=== PATIENT | female | born 1990 | race Caucasian/White ===

== ENCOUNTER 2020-09-30 10:15 | Outpatient (RCR) | payer OTHER, SELFPAY ==
--- NOTE | 2020-09-15 12:09 | PC.ADMIT ---
Patient is a 30 year old female who was referred by her PCP to PHP d/t increased depression with SI. Patient reports hx of trauma and OCD. Ruling out Bipolar II D/O. Patient is alert and oriented x4. Calm and cooperative. Presents with depressed mood, blunted affect. Soft spoken. Denied Si at present. Patient gave verbal permission to email her a copy of her safety plan. When asked who she could call or talk to if she was feeling unsafe patient stated her therapist. Patient has the crisis numbers if needed. When asked if she was experiencing auditory or visual hallucinations or paranoid thoughts patient stated, intrusive thoughts, I have a vivid imagination, I think in images/pictures . Patient stated the images are scary and that she suffers from trauma and OCD. Medications reconciled with patient and patients pharmacy. Patient reports at times she misses doses as she forgets. Education tips provided on how to remember to take medications and the importance of taking her medications consistently.
[2020-09-15 12:20] VITALS: BMI 21.1
--- NOTE | 2020-09-15 14:05 | PC.NURSE ---
Patient called and stated she forgot to go to her medication appointment scheduled at 1300 with [facility] [place] prescriber Linda Paez NP.
--- NOTE | 2020-09-15 14:12 | PC.NURSE ---
Case opened in treatment team
--- NOTE | 2020-09-16 13:55 | P.HPPSP_ITS ---
HPI Chief Complaint: depression Sources of Information: patient interviewed, chart reviewed and crisis/core team assessment reviewed HPI Narrative: Ms. Hodges is a 30 year-old woman with hx of MDD. Pt referred by her OP psychotherapist, Marycarmen. Pt reports feeling increasingly more hopeless, decreased energy, intermittent suicidal ideation. She also reports OCD symptoms including having to count to 10 prior to leaving the bathroom otherwise feels her anxiety will be out of control. She also reports having to skip some steps when going down or up the stairs. She also reports that when she washes her hands she has to do it at least 3 times for prolonged periods of time (pt does not know how long). Pt reports she sleeps and eats well. She reports a number of inpt psychiatric admission for depression. She denies hx of suicide attempts. She denies hx of VH/AH. She also denies symptoms suggestive of hypomania or hernan including increased energy,flight of ideas, decrease need for sleep, expansive or grandiose mood. Past Psychiatric History: Inpatient: several inpt, last one was at [facility] October 2019 for depression OP: Marycarmen Medical Evaluation Reviewed: Yes [facility] Medical History Hypothyroidism Family History: Mom- MDD Social History: Pt currently living with father. She has no children. Pt has BA in philosophy. She is currently unemployed. She has older brother. Substance History: denies Trauma History: past psychiatric hospitalizations felt she was coerced to take medications Diagnostics Vital Signs (24Hr): Body Mass Index 21.1 Meds/Allergies Allergies Allergies Allergy/AdvReac Type Severity Reaction Status Date / Time No Known Allergies Allergy Verified 09/15/20 12:22 Mental Status Exam Mental Status Exam Narrative: Appearance: casually groomed, in NAD, fair hygiene Behavior: calm, cooperative initially more guarded Psychomotor: no agitation or retardation noted Speech: clear, normal rate/rhythm/volume, spontaneous TP: linear TC: no signs of psychosis, hopeless/helpless Mood: okay ' Affect: blunted, restricted in range VH/AH: none Delusions: none Insight/judgment: fair x 2. memory/cog: alert, oriented x 3. grossly intact to conversational testing. Assessment & Plan Assessment & Plan (1) MDD (major depressive disorder), recurrent episode, moderate: Status: Acute Code(s): F33.1 - Major depressive disorder, recurrent, moderate Assessment and Plan: 1. continue abilify 15 mg po daily 2. Start Venlafaxine 37.5mg po daily Certification I certify that partial hospital treatment is medically necessary due to the symptoms and problems resulting from the patient's mental illness and the failure to treat the patient at the partial hospital level of care would likely result in the patient requiring inpatient psychiatric care which could not be prevented at a less intensive level of care. Telehealth Telehealth Location of provider rendering services: practice address Location of patient: address on file Patient Identification confirmed using: Name, : Yes Telehealth method: video Patient verbally consented to treatment: Yes Patient verbally consented to billing insurance company: Yes Patient informed of any privacy concerns related to visit: Yes Time spent with patient (mins): 30
--- NOTE | 2020-09-16 14:03 | P.EN_ITS ---
Event Note Date of Service: 09/15/20 Event Note: Pt no show for admission to [facility] [place] with medication provider
--- NOTE | 2020-09-16 14:03 | PM.EVENT ---
Event Note Date of Service: 09/15/20 Event Note: Pt no show for admission to [facility] with medication provider
--- NOTE | 2020-09-16 14:56 | PC.NURSE ---
Addendum entered by Latrice Wynn, [facility] 09/30/20 15:17: I spoke with the client upon discharge. She has an appointment with her therapist in three days. She is still waiting for a call from Nuha Julian APRN for an appointment. Anat Cardona is not accepting new clients. If the client needs medication she will continue with her PCP who has been prescribing the medication. Addendum entered by Latrice Caroline Wynn, [facility] 09/16/20 15:11: The client is in need of an outpatient prescriber. She has placed a call to Nuha Ojeda and is waiting for a call back. She states that she also heard abouit Anat Cardona. I gave her [facility] number. She agreed to call and if she doesn't get a call back agrees to let me call and make a referral Original Note: I called the client. We reviewed her treatment plan and estimated discharge date of Sep 30. We discussed her struggles with chronic depression with hopelessness and intermittent suicidal ideation. She states that she is feeling slightly less hopeless today and will be safe tonight. We discussed history of symptoms and past hospitalization that was traumatic in the way it happened after she called crisis for help. She explained that she wanted to get assessed and believed that she was going to meet with a therapist to talk not to go on the inpatient unit. She feels that she was forced to go and that some staff on the unit were verbally abusive. We discussed her symptoms. She denies hearing voices. She is unsure if she is paranoid but states that when depressed she feels more vulnerable. She feels that PHP is somewhat helpful although feels drained by the 3rd group. She request a half day schedule.
--- NOTE | 2020-09-18 14:22 | PC.NURSE ---
I left a message with client to call re checking in to hear how she is doing and if she is coming in tomorrow.
--- NOTE | 2020-09-23 09:24 | PC.NURSE ---
I called Linda after community meeting because she stated she did not feel well emotionally and could not attend today. She explained that she is feeling hopelessness about ability to have a life with her severe OCD symptoms. We discussed using group to explore ways to manage the symptoms and to process feelings of hopelessness. She agreed to come to groups today.
--- NOTE | 2020-09-24 12:46 | PC.NURSE ---
the client called this morning and stated that she felt like she could not tolerate talking with others in group today and will be back tomorrow. She states that she is safe.
--- NOTE | 2020-09-25 09:42 | PC.NURSE ---
I left a message with clients therapist Dexter figueredo to inform about clients presentation and progress in PHP. I requested a call back.
--- NOTE | 2020-09-25 14:53 | PC.NURSE ---
The client reported hopelessness/suicidal thoughts without plan or intent in the wrap up group this am. I called the client to discuss her needs and safety. She states that she does, at times, feel hopeless but that she is not feeling suicidal and if she should have thoughts of suicide she will call the suicide prevention hotline and/or her therapist. She has used both in the past when experiencing suicidal thoughts and has their numbers. She reports that she is eating and sleeping ok and that her father is with her as he works from home. We discussed her experience in [facility]. She states that she feels better being part of a community although would prefer to talk about uplifting topics instead of depression/symptoms. We discussed after care plans. she has attended the [facility] in the past and is open to trying their groups on line. She states that she would like to do volunteer work and to be part of a theater group.
--- NOTE | 2020-09-25 16:59 | HO.PHPPROGNO ---
Subjective Subjective Date of Service: 09/26/20 Reason For Visit: depression Interim History: Linda reports she did not begin Venlafaxine as her pharmacy gave her perphenazine. Rx-resent to [facility] per her request. Reports Abilify she believes helps, is unsure how, but if I don't take it, I feel worse. Denies current questions on regime. Denies SI, HI, SIBS. Finding the program is meeting her needs and coping skill teaching is quite helpful for her at this time. Medication Compliance: Yes Side effects from medications: No Attending Groups: Yes Review of Systems Review of Systems Yes all other systems are reviewed and are negative Psychiatric: Reports anxiety and Reports depression Mental Status Exam Mental Status Exam Patient Appearance: Appropriate Patient Orientation: Person, Place, Time and Situation Level of Consciousness: Awake and Alert Patient Behavior: Appropriate and Anxious Mood Description: Anxious Affect Description: Flat Patient Cognition Impaired: No Ability to Follow Directions: Good Speech Pattern: Spontaneous Speech Memory Description: Intact Hallucinations: None Delusions: Not Present Thought Process: Intact Thought Content: positive for Intact Depressive Symptoms: Increased Anxiety Judgement: Good Diagnostics Vital Signs (24Hr): Body Mass Index 21.1 Assessment & Plan Assessment & Plan (1) MDD (major depressive disorder), recurrent episode, moderate: Status: Acute Code(s): F33.1 - Major depressive disorder, recurrent, moderate Assessment and Plan: Venlafaxine re-sent for trial to [facility]. Certification I certify that partial hospital treatment is medically necessary due to the symptoms and problems resulting from the patient's mental illness and the failure to treat the patient at the partial hospital level of care would likely result in the patient requiring inpatient psychiatric care which could not be prevented at a less intensive level of care. Greater than 50% of the session was spent on counseling and/or coordination of care Discharge Plan Discharge Attending provider: Dilip Martinez Medications: Continued venlafaxine 37.5 mg capsule,extended release 24hr 37.5 mg PO DAILY Qty: 10 RF: 0 No Action levothyroxine 125 mcg Tablet 125 mcg PO DAILY RF: 0 aripiprazole 15 mg Tablet 15 mg PO DAILY RF: 0 Telehealth Telehealth Location of provider rendering services: practice address Location of patient: address on file Patient Identification confirmed using: Name, : Yes Telehealth method: video Patient verbally consented to treatment: Yes Patient verbally consented to billing insurance company: Yes Patient informed of any privacy concerns related to visit: Yes Time spent with patient (mins): 15
--- NOTE | 2020-09-26 11:18 | PC.NURSE ---
Staff stated that patient did not show up to the second group. I called patient to check in with her. She stated, I guess I'm not feeling quite up to going to group . She stated it is usually helpful to talk to people but not always. Asked her if she was having thoughts to harm herself or kill herself and patient stated she was not. Asked her who she could call if she felt unsafe and patient stated the Suicide Prevention Hotline or her therapist. Asked her if she was really struggling could she let her father know whom lives with her and is working from home and she stated if she needed to she could talk to him. Asked patient if she needed to go to the hospital and patient stated she did not. Asked patient if she has been taking care of herself eating and showering and she stated she was. Patient stated she wanted to continue the program and has a few days left. Stated she will probably feel better after the weekend and has plans to do some de-cluttering. Patient has not started new medication Effexor and stated a friend is going to pickling tank operator the medication from her pharmacy today.
--- NOTE | 2020-09-29 09:25 | PC.NURSE ---
Linda called out for the day reporting she did not feel up to attending groups. Discussed a day treatment referral do to PHP seeming to be overstimulating for her. She agreed. Pt to close tomorrow as planned. Pt's clinician to call her later to discuss referral. Pt reported being safe and agreed to call crisis if needed.
--- NOTE | 2020-09-29 11:48 | PC.NURSE ---
The client called out today. I called and left message for her to call me.
--- NOTE | 2020-09-30 13:57 | HO.PHPPROGNO ---
Subjective Subjective Date of Service: 09/30/20 Reason For Visit: depression Interim History: Pt reports today is her last day at [facility]. She denies suicidal or homicidal ideation She reports format not as helpful in that she does not like to talk much with people in group setting. She reports that she is also getting others labs, she states to check deficiencies that may be causing her depression. She reports sleeping for the most part. She reports symptoms of OCD, like washing hands excessively, skipping steps when going up or down stairs. She has therapist in community but looking for prescriber. Review of Systems Review of Systems Yes all other systems are reviewed and are negative Psychiatric: Reports anxiety and Reports depression Mental Status Exam Mental Status Exam Narrative: Appearance: casually groomed, in NAD, fair hygiene Behavior: calm, cooperative initially more guarded Psychomotor: no agitation or retardation noted Speech: clear, normal rate/rhythm/volume, spontaneous TP: linear TC: no signs of psychosis, hopeless/helpless Mood: okay ' Affect: brighter, poor eye contact VH/AH: none Delusions: none Insight/judgment: fair x 2. memory/cog: alert, oriented x 3. grossly intact to conversational testing. Patient Appearance: Appropriate Patient Orientation: Person, Place, Time and Situation Level of Consciousness: Awake and Alert Patient Behavior: Appropriate and Anxious Mood Description: Anxious Affect Description: Flat Patient Cognition Impaired: No Ability to Follow Directions: Good Speech Pattern: Spontaneous Speech Memory Description: Intact Diagnostics Vital Signs (24Hr): Body Mass Index 21.1 Assessment & Plan Assessment & Plan (1) MDD (major depressive disorder), recurrent episode, moderate: Status: Acute Code(s): F33.1 - Major depressive disorder, recurrent, moderate Assessment and Plan: Venlafaxine re-sent for trial to [facility]. Certification I certify that partial hospital treatment is medically necessary due to the symptoms and problems resulting from the patient's mental illness and the failure to treat the patient at the partial hospital level of care would likely result in the patient requiring inpatient psychiatric care which could not be prevented at a less intensive level of care. Greater than 50% of the session was spent on counseling and/or coordination of care Discharge Plan Discharge Attending provider: Dilip Martinez Medications: Continued venlafaxine 37.5 mg capsule,extended release 24hr 37.5 mg PO DAILY Qty: 10 RF: 0 No Action levothyroxine 125 mcg Tablet 125 mcg PO DAILY RF: 0 aripiprazole 15 mg Tablet 15 mg PO DAILY RF: 0
== END 2020-09-30 23:55 | disposition home or self-care (01) ==
LOC: HO.PHPA 10:15
PROVIDERS: Visit Provider Psychiatry & Neurology Psychiatry
DX: F33.1 Major depressive disorder, recurrent, moderate (principal); Z79.899 Other long term (current) drug therapy
CPT/HCPCS: 90791; 90853; 99202; 99213